=== PATIENT | female | born 1955 | race Caucasian/White ===

== ENCOUNTER → 2016-10-17 | Outpatient (CLI) | payer BC ==
[~2016-10-17] MED LIST: ASPI-558 PO; CALC-586 PO; CALC-686 PO; FLAX100029 PO; MULT-806 PO; PROP10TA PO
== END ==
LOC: WC.BC 13:19
DX: Z12.31 Encounter for screening mammogram for malignant neoplasm of breast (principal)
CPT/HCPCS: 77063; G0202